=== PATIENT | male | born 1970 | race Caucasian/White ===

== ENCOUNTER 2021-03-22 09:57 | Outpatient (REF) | payer OTHER, SELFPAY ==
[2021-03-23 01:32] LABS: COVID-19 RT-PCR UVMMC Result Negative (Negative)
== END 2021-03-22 09:58 | disposition home or self-care (01) ==
LOC: LBN 09:57
PROVIDERS: Visit Provider Nurse Practitioner Family
DX: Z20.822 Contact with and (suspected) exposure to COVID-19 (principal)
CPT/HCPCS: U0003

== ENCOUNTER 2021-04-13 13:43 | Outpatient (REF) | payer OTHER, SELFPAY ==
[2021-04-14 12:27] LABS: COVID-19 RT-PCR UVMMC Result Negative (Negative)
== END 2021-04-13 13:44 | disposition home or self-care (01) ==
LOC: NCHCN 13:43
PROVIDERS: Visit Provider Family Medicine
DX: Z20.822 Contact with and (suspected) exposure to COVID-19 (principal)
CPT/HCPCS: U0003

== ENCOUNTER 2024-01-20 15:59 | Outpatient (REF) | payer OTHER, SELFPAY ==
[2024-01-20 16:00] LABS: ALT 34 U/L (16-63); AST 17 U/L (15-37); Albumin 4.2 g/dL (3.4-5.0); Alkaline Phosphatase 70 U/L (46-116); Anion Gap 10.1 mmol/L (3-11); BUN 14 mg/dL (7-18); Bilirubin, Total 0.74 mg/dL (0.2-1.0); CO2 25.9 mmol/L (21.0-32.0); CREATININE 0.9 mg/dL (0.70-1.30); Calcium 9.4 mg/dL (8.5-10.1); Chloride 106 mmol/L (98-107); Estimated GFR 102.76 (mL/min/1.73m2); Glucose 100 mg/dL (74-106); HDL Cholesterol 54 mg/dL (40-60); Potassium 4.4 mmol/L (3.5-5.1); Sodium 142 mmol/L (136-145); Total Protein 7.6 g/dL (6.4-8.2); Triglyceride 200 mg/dL (<150)
[2024-01-20 16:41] LABS: Calculated LDL 159 mg/dL (<100); Cholesterol 253 mg/dL (<200)
[2024-01-20 23:17] LABS: PSA, Screening 0.7 ng/mL (<=3.5)
== END 2024-01-20 16:00 | disposition home or self-care (01) ==
LOC: NCHCN 15:59
PROVIDERS: Visit Provider Nurse Practitioner Family
DX: Z12.5 Encounter for screening for malignant neoplasm of prostate (principal); E78.5 Hyperlipidemia, unspecified
CPT/HCPCS: 80053; 80061; 84153

== ENCOUNTER 2024-12-03 10:30 | Day surgery (SDC) | payer OTHER, SELFPAY ==
--- NOTE | 2024-12-02 18:28 | W.ANESPRE ---
General Info Date of Service Date Performed: 12/03/24 Height: 5 ft 7 in Weight: 75.75 kg Body Mass Index (BMI): 26.2 Surgical Procedure: Operation Date: 12/03/24 12:20 Proposed Procedure Side Surgeon p Colonoscopy Tacho Ledesma MD Meds Allergies and Home Medications Allergies Allergy/AdvReac Type Severity Reaction Status Date / Time Iodinated Contrast Media Allergy Severe Anaphylaxis Verified 12/03/24 10:52 Home Medication ?Medication ?Instructions ?Recorded albuterol sulfate 90 mcg/actuation 2 puff inhalation Q6H PRN 08/19/24 aerosol inhaler (Ventolin HFA) budesonide-formoterol HFA 160 1 puff inhalation BID 08/19/24 mcg-4.5 mcg/actuation aerosol inhaler diazepam 5 mg tablet 5 mg PO QHS PRN 08/19/24 sumatriptan succinate 50 mg tablet See Rx Instructions PO .COMPLEX 08/19/24 Current Visit Medications: Current Medications Generic Name Dose Route Start Last Admin Trade Name Freq PRN Reason Stop Dose Admin Ringer's Solution 1,000 mls @ 80 mls/hr 12/03/24 06:00 IV 12/03/24 23:59 INFUSION PATTY IV Miscellaneous Supplies 1 each 12/03/24 06:00 Iv Access IV 12/03/24 23:59 DIRECTED PATTY Sodium Chloride 0 ml 12/03/24 06:00 Normal Saline Flush 10 Ml Syr IV 12/03/24 23:59 PRN PRN Sodium Chloride 0 ml 12/03/24 06:00 Normal Saline 10 Ml Vial IJ 12/03/24 23:59 DIRECTED PRN Sterile Water 0 ml 12/03/24 06:00 Water,Injection,Sterile 10 Ml Vial IJ 12/03/24 23:59 DIRECTED PRN PFSH Medical History Medical History Migraine with persistent visual aura Hyperlipidemia Mild intermittent asthma Diverticulitis Anaphylaxis Surgical History Surgical History (Updated 12/03/24 @ 10:55 by Glory Rice) Hx of colonoscopy x 3 Tobacco Smoking/Tobacco Use Status: Former Tobacco Use Alcohol Alcohol Intake: current Alcohol intake frequency: 0-2 drinks per day Alcohol type: beer Substance Use Substance use: Daily Substance use type: marijuana Details: Edibles and smoking Vital Signs and Lab Results Vital Signs Most Recent Vital Signs in EMR: Temp Pulse Resp BP Pulse Ox 36.2 C L 71 16 132/86 97 12/03/24 10:57 12/03/24 10:57 12/03/24 10:57 12/03/24 10:57 12/03/24 10:57 Anesthesia Assessment and Plan Anesthesia History Personal History: No History of Anesthesia Complications Family History: No Family History of Anesthesia Complications Exercise Tolerance Exercise Tolerance: Metabolic Equivalents>4 Cardiac & Pulmonary Exam Cardiac Exam: Normal S1/S2 Heart Sounds Pulmonary Exam: Clear Bilateral Breath Sounds Implantable Cardiac Device Does patient have a Pacemaker or an ICD?: No Airway Exam Known Difficult Airway: No Mallampati Class: 2 Mouth Opening: Normal (> 3cm) Thyromental Distance: Greater than 3 cm Neck Range of Motion: Full ROM Neck Circumference: Normal Teeth Condition: Normal Dentition ASA Classification ASA Score: ASA 2 Emergency Case?: No NPO Status NPO Status: NPO Clears >2 hours, Solids >8 hours Anesthesia Plan Resuscitation Status: Full Code Anesthesia Technique: General Anesthesia Airway Planned: Natural Airway Monitors Used: Standard Monitors Preoperative Comments:: 54 yo for colo. Sig PMHx: Asthma (budesonide, albuterol). daily cannabis.
[2024-12-03 10:50] VITALS: BMI 26.2
[2024-12-03 10:57] VITALS: BP 132/86; PULSE 71; RESP 16; TEMP 36.2; O2SAT 97
[2024-12-03] MEDS: Lactated Ringers 1,000 ML 80 ML IV (11:20)
--- NOTE | 2024-12-03 11:23 | COLE_ITS ---
Date of service: 12/03/24 Time of Service: 11:23 Colonoscopy Report Procedure Description: PROCEDURES PERFORMED: 1. Colonoscopy PREOPERATIVE DIAGNOSIS: Surveillance colonoscopy, colon polyps POSTOPERATIVE DIAGNOSIS: Pandiverticulosis SURGEON: Samreen Ledesma MD INDICATION FOR PROCEDURE: the patient is a 54-year-old man with personal history of adenomatous polyp removal in the past. This is his fourth colonoscopy. He does not have any symptoms. Family history of a maternal uncle who in his 40s from colon cancer. He self?reports to me that he has a tattoo area somewhere inside his colon. His last colonoscopy was 7 years ago. FINDINGS: No tattoo was found anywhere. Polyps: There were no polyps found. There is significant diverticular disease scattered throughout the entire colon - no inflammation, stricture or fibrosis anywhere. No obvious hemorrhoid disease. SURVEILLANCE interval/FOLLOW-UP: The family history is an isolated second- degree relative. I think a repeat colonoscopy in 10 years is acceptable considering he went 7 years this time and there were no new polyps. SPECIMENS: None EBL: Minimal COMPLICATIONS: None QUALITY of prep: Excellent Procedure in detail: The patient gave written consent and was in agreement with the indications, the potential risks as well as the benefits of the procedure. They were taken to the endoscopy suite and laid in the left lateral decubitus position. A timeout was performed and anesthesia was administered which was tolerated well. I started the procedure. Digital rectal and visual examination was performed and grossly within normal limits. A well-lubricated flexible colonoscope was then introduced and passed without any notable difficulty all the way to the cecum identified by the ileocecal valve and the appendiceal orifice. I was able to find the opening and lumen of the ileocecal valve, but the laxity of the cecum prohibited intubation of the terminal ileum. The visible mucosa appeared normal visually. I then slowly pulled the scope back. I looked through the entire colon twice searching for the prior tattoo site and was unable to find one. The patient tolerated the procedure well and was taken to the PACU in hemodynamically stable condition.
--- NOTE | 2024-12-03 11:24 | W.PM.DSUDISC ---
Date of service: 12/03/24 Discharge Plan Disposition Patient Disposition: Home Condition: Good Discharge Details Attending Provider: Tacho Ledesma Primary Care Provider: Livia Treviño Home Meds and New Rx's Prescriptions: No Action budesonide-formoterol 160-4.5 mcg/actuation HFA aerosol inhaler 1 puff inhalation BID diazepam 5 mg tablet 5 mg PO QHS PRN Rx Instructions: 1 tablet by mouth at bedtime as needed 1/2 to 1 tab if needed short term for muscle spasm - do not drive or use w/ alcohol sumatriptan succinate 50 mg tablet See Rx Instructions PO .COMPLEX Rx Instructions: take 1 tab at onset of headache; if no relief may repeat 1 tab after at least 2 hrs; max = 4 tabs/24 hr PO albuterol sulfate [Ventolin HFA] 90 mcg/actuation HFA aerosol inhaler 2 puff inhalation Q6H PRN Discharge Instructions Additional Instructions: FINDINGS: No cancer. No new polyps. Careful attention was placed trying to find the tattoo that is allegedly inside of you somewhere. I did not find the tattoo site anywhere and went through your colon twice trying to find it. Considering your last colonoscopy was in 2018 (7 yrs ago) and there were no new polyps on this colonoscopy, I think it is safe for you to go 10 years. An isolated second-degree relative who had colon cancer does not significantly increase your risk. Incidental finding today is diverticulosis. This is an extremely common condition and is benign and there is nothing to do about it. Stand Alone Forms: Anesthesia Discharge Inst., Colonoscopy Post Instructions, Jean Granger ([facility]) Activity:: Activity as Tolerated Diet:: As Tolerated Discharge Orders Discharge Orders: Discharge Order (Routine); Ordered 12/03/24 Ordered By: Tacho Ledesma
[2024-12-03 11:54] VITALS: BP 108/76; PULSE 85; RESP 16; TEMP 36.2; O2SAT 96
--- NOTE | 2024-12-03 12:11 | W.ANESPOSTOP ---
Postoperative Evaluation Date, Time and Location Date Performed: 12/03/24 Time Performed: 12:11 Patient Location: Day Surgery Unit Vital Signs Most Recent Imported Vital Signs: Most Recent Vital Signs Temp Pulse Resp BP Pulse Ox 36.2 C L 85 16 108/76 96 12/03/24 11:54 12/03/24 11:54 12/03/24 11:54 12/03/24 11:54 12/03/24 11:54 Pain Score Most Recent Pain Score: Most Recent Pain Score Pain Level 0 12/03/24 10:57 Assessment Mental Status: Awake (Alert & Oriented to Patient Baseline) Airway and Respiratory Function: Patent airway with normal (patient baseline) respiratory exam Cardiovascular Function: Hemodynamically Stable Hydration Status: Adequately Hydrated Nausea & Vomiting: No Nausea or Vomiting Pain: Pt. Denies Any Pain Peripheral Nerve Block: Patient did not receive a nerve block
[2024-12-03 12:35] VITALS: BP 127/87; PULSE 77; RESP 16; TEMP 36.3; O2SAT 95
== END 2024-12-03 12:43 | disposition home or self-care (01) ==
PROVIDERS: PCP Nurse Practitioner Family; Visit Provider Student in an Organized Health Care Education/Training Program
PROC: 0DJD8ZZ Inspection of Lower Intestinal Tract, Via Natural or Artificial Opening Endoscopic (ICD-10-PCS; CPT 45378; principal; 2024-12-03 12:15)
DX: Z12.11 Encounter for screening for malignant neoplasm of colon (principal); Z86.0101 Personal history of adenomatous and serrated colon polyps; J45.909 Unspecified asthma, uncomplicated; K57.30 Diverticulosis of large intestine without perforation or abscess without bleeding; Z80.0 Family history of malignant neoplasm of digestive organs
CPT/HCPCS: 45378; J2704